=== PATIENT | female | born 1985 | race Caucasian/White ===

== ENCOUNTER 2016-07-21 11:45 | Emergency (ER) | payer OTHER ==
[~2016-07-21] VITALS: Ht 162.6 cm; Wt 77.3 kg
[2016-07-21] MEDS ORDERED: PREG50 PO (12:05)
[2016-07-21] MEDS ORDERED: LEVE500T53 PO (12:05)
[2016-07-21] MEDS ORDERED: FLUO-191 PO (12:12)
[2016-07-21] MEDS ORDERED: KETOROLAC TROMETHAMINE 30 MG/ML VIAL IVP ONE (14:00)
[2016-07-21] MEDS ORDERED: HYDROmorphone 2 MG/ML SYRINGE IVP ONE (14:00)
[2016-07-21 14:58] VITALS: BP 106/78
== END 2016-07-21 15:01 | disposition home or self-care (01) ==
LOC: EMS 12:15
DX: M54.5 Low back pain (principal); F17.210 Nicotine dependence, cigarettes, uncomplicated; G40.909 Epilepsy, unspecified, not intractable, without status epilepticus; Z88.8 Allergy status to other drugs, medicaments and biological substances
CPT/HCPCS: 96374; 96375; 99284; 99406; J1170; J1885